=== PATIENT | female | born 1995 | race American Indian/Alaskan Native ===

== ENCOUNTER 2016-10-08 15:46 | Inpatient (IN) | payer OTHER, MEDICAID ==
[2016-10-08 16:35] LABS: Bacteria,Urine 1+ /HPF (Negative); Bilirubin,Urine NEG (Negative); Blood,Urine NEG (Negative); Ketones,Urine TR mg/dL (Negative); Leukocyte Esterase,Urine MOD (Negative); Mucus,Urine FEW /HPF; Nitrite,Urine NEG (Negative); Protein,Urine <15 mg/dL mg/dL (Negative); Urobilinogen,Urine < 2.0 mg/dL (<2.0)
--- NOTE | 2016-10-08 16:38 | Emergency Department Report ---
HPI - General Chief Complaint: Abdominal Pain Time Seen by Provider: 10/08/16 16:10 - HPI HPI: This is a 21-year-old Afro-[place] female presents to the emergency department via EMS from home with complaint of lower pelvic and vaginal pain that has been going on for the past hour prior to presentation. Patient did not take anything for her symptoms prior to presentation. She denies any nausea, vomiting, vaginal bleeding, vaginal discharge, dysuria. Patient says that the pain feels like contractions and similar to her labor and delivery one year ago. Patient is currently but if she was to be she would be . She says that she has been having regular menstrual cycles and the last one was one month ago. She has not taken any home tests. She denies any past medical history. She does not currently have an MANAGER [employer]. ED Past Medical Hx - Past Medical History Previous Medical History?: No - Surgical History Past Surgical History?: No - Social History Smoking Status: Never Smoker Substance Use Type: None - Medications Home Medications: Home Medications Medication Instructions Recorded Confirmed Last Taken Type No Known Home Medications [No 10/08/16 10/08/16 Unknown History Reported Home Medications] ED Review of Systems ROS: Stated complaint: ABD PX Other details as noted in HPI Comment: All other systems reviewed and negative Constitutional: denies: chills, fever Eyes: denies: eye pain, eye discharge, vision change ENT: denies: ear pain, throat pain Respiratory: denies: cough, shortness of breath, wheezing Cardiovascular: denies: chest pain, palpitations Gastrointestinal: abdominal pain (pelvic pain). denies: nausea, diarrhea Genitourinary: denies: dysuria, discharge Musculoskeletal: denies: back pain, joint swelling, arthralgia Skin: denies: rash, lesions Neurological: denies: headache, weakness, paresthesias Physical Exam - Physical Exam Vital Signs: Vital Signs 10/08/16 16:01 Temperature 98 F Pulse Rate 82 Respiratory 20 Rate Blood Pressure 131/85 Blood Pressure 131/85 [Left] O2 Sat by Pulse 100 Oximetry Physical Exam: GENERAL: The patient is well-developed well-nourished. HEENT: Normocephalic. Atraumatic. Extraocular motions are intact. Patient has moist mucous membranes. NECK: Supple. Trachea is midline. CHEST/LUNGS: Clear to auscultation. There is no respiratory distress noted. HEART/CARDIOVASCULAR: Regular. There is no tachycardia. There is no gallop rub or murmur. ABDOMEN: Abdomen is soft. Unable to reproduce abdominal and pelvic pain to palpation. Patient has normal bowel sounds. There is no abdominal distention. : There appears to be some type of saclike structure starting to come out of the cervix which is slightly dilated. SKIN: Skin is warm and dry. NEURO: The patient is awake, alert, and oriented. The patient is cooperative. The patient has no focal neurologic deficits. The patient has normal speech. MUSCULOSKELETAL: There is no tenderness or deformity. There is no limitation range of motion. There is no evidence of acute injury. ED Course Vital Signs 10/08/16 16:01 Temperature 98 F Pulse Rate 82 Respiratory 20 Rate Blood Pressure 131/85 Blood Pressure 131/85 [Left] O2 Sat by Pulse 100 Oximetry - Consultations Consultation #1: I did a bedside ultrasound and can see a head very low in the uterus is not in the cervical canal. I had the poultry field service technician come bedside and they agree and say that it looks like there is no amniotic fluid and no visible heart tones/rate. I spoke with the MANA[employer] on-call, Dr. Laura Sarabia, who says that they will need a ultrasound no matter what she does much information as possible about gestational age, lie, etc. However, they are accepting the patient over to labor and delivery triage. I will try to get the ultrasound first and then transport the patient. 10/08/16 16:43 ED Medical Decision Making - Radiology Data Radiology results: report reviewed Preliminary ultrasound obstetrical report shows 18 week gestation, no med , no heart tones are dopplered noted. No fluid seen in the uterus. Transverse lie of a xavier fetus. Cervix appears open with possible bulging bag. - Medical Decision Making 21-year-old female presents to the emergency department with a one-hour history of lower abdominal/pelvic spasmodic contractual pain. The patient had no idea that she was as she felt that she was having normal monthly menstrual cycles. However there appears to be some type of sac like structure or seen. I took a bedside ultrasound and there was a very visible head and cervical spine seen in the lower uterus and/or cervical canal. I spoke with the MANAGER [employer] on-call who said that they needed a full ultrasound to know what to do but did accept the patient for transfer/admission to the labor and delivery side. The ultrasound was done in the emergency department and the patient was immediately transported over to L&D triage. The pulmonary port shows a xavier gestation at about 18 weeks that does not appear viable as there is no movement, heart tones, and amniotic fluid in the cervix appears open. Patient is currently at labor and delivery. - Differential Diagnosis , miscarriage, threatened , fibroids Critical Care Time: No Critical care attestation.: If time is entered above; I have spent that time in minutes in the direct care of this critically ill patient, excluding procedure time. ED Disposition Clinical Impression: demise Qualifiers: Weeks of gestation: 18 weeks Qualified Code(s): Z3A.18 - 18 weeks gestation of Disposition: OP ADMITTED IP TO THIS HOSP Is pt being admited?: Yes Condition: Stable Time of Disposition: 17:34
--- NOTE | 2016-10-08 17:22 | Admit Criteria Form ---
Admission Criteria Documentation: OBSTETRIC AND GYNECOLOGIC DISEASE GRG Clinical Indications for Admission to Inpatient Care (Place 'X' for any and all applicable criteria): Hospital admission is needed for appropriate care of the patient because of 1 or more of the following (1)(2)(3): [ ]I. Hemodynamic instability, as indicated by 1 or more of the following (1)( 2)(3)(4)(5): [ ]a) Vital signs or other findings not as expected for chronic patient condition or baseline [ ]b) Instability indicated by 1 or more of the following: [ ]i) Hypotension [ ]ii) Symptomatic tachycardia unresponsive to treatment (eg, analgesia, fluids, sedation as indicated) [ ]iii) Inadequate perfusion indicated by 1 or more of the following: [ ]A. Lactic acidosis (greater than 2 mmol/ L) [ ]B. New abnormal capillary refill ( greater than 3 seconds) [ ]C. Reduced urine output [ ]D. New altered mental status [ ]iv) Orthostatic vital sign changes unresponsive to treatment (eg, fluids) [ ]v) Multiple IV fluid boluses required to maintain adequate blood pressure or perfusion [ ]vi) IV inotropic or vasopressor medication required to maintain adequate blood pressure or perfusion [ ]II. Obstetric infection requiring hospitalization indicated by 1 or more of the following(13)(14): [ ]a) Chorioamnionitis [ ]b) Endometritis (except mild endometritis) [ ]c) Pelvic abscess [ ]d) Peritonitis [ ]e) Septic pelvic thrombophlebitis [ ]III. Amniotic fluid or pulmonary embolism(4)(5)(6) [ ]IV. Suspected peritonitis or ectopic requiring monitoring beyond scope of 24 hours or observation care(7)(8) [ ]V. compromise requiring hospitalization indicated by ALL of the following(9)(10): [ ]a) compromise indicated by 1 or more of the following(11): [ ]i) Abnormal heart rate monitoring [ ]ii) Abnormal contraction stress test [ ]iii) Abnormal biophysical profile [ ]iv) Abnormal Doppler flow in vessels (ie, Doppler velocimetry) (12) [ ]b) Persistence of compromise indicators during evaluation and observation monitoring [ ]. Ovarian hyperstimulation syndrome requiring hospitalization[A] indicated by ALL of the following(15): [ ]a) Recent ovarian stimulation with gonadotropins, or evidence on ultrasound of spontaneous emergence of large number of ovarian follicles [ ]b) Evidence of severe ovarian hyperstimulation syndrome indicated by 1 or more of the following: [ ]i) Abdominal pain unresponsive to oral therapy [ ]ii) Acute respiratory distress syndrome [ ]iii) Electrolyte imbalance ( eg, hyponatremia, hyperkalemia) [ ]iv) Elevated liver enzymes [ ]v) Evidence of thromboembolism [ ]vi) Hemoconcentration (hematocrit greater than 45 % (0.45)) [ ]vii) Inability to maintain oral intake adequate to prevent hemoconcentration [ ]viii) Marked hypotension from baseline (eg, SBP 20 mmHg below patients usual pressure) [ ]ix) Oliguria or anuria [ ]x) Ovarian torsion [ ]xi) Pleural or pericardial effusion on x-ray or echocardiogram [ ]xii) Rapid increase in serum creatinine to greater than 1.2 mg/dL (106 micromoles/L) or creatinine clearance less than 50 mL/min/1.73m2 (0.84 mL/ sec/1.73m2) [ ]xiii) Ruptured ovarian cyst with hemorrhage [ ]xiv) Severe abdominal pain or peritoneal signs [ ]xv) Tense ascites that cannot be managed with paracentesis in outpatient setting [ ]VII.Pelvic infection requiring hospitalization indicated by 1 or more of the following (16): [ ]a) Outpatient treatment has failed or is not appropriate (eg, inpatient monitoring required) [ ]b) Pelvic abscess [ ]c) Surgical emergency cannot be excluded (eg, rigid abdomen) [ ]d) Vomiting precluding outpatient and observation care management VIII. loss complications requiring inpatient medical treatment indicated by 1 or more of the following (4)(7)(9): [ ]a) Fever [ ]b) Peritonitis [ ]c) Sepsis [X]d) Severe abdominal pain [ ]IX. or patient requiring monitoring for severe heart failure, pulmonary disease, or other comorbid condition (eg, peripartum cardiomyopathy) (4)(17) [ ]X. patient with rupture of membranes requiring hospitalization indicated by ANY ONE of the following: [ ]a) Chorioamnionitis, cloudy amniotic fluid, or other evidence of infection [ ]b) compromise or other need for monitoring (11) [ ]c) Gestation longer than 23 weeks and ANY ONE of the following: [ ]i) Abnormal (noncephalic) presentation [ ]ii) Inadequate home environment (eg, home too far from hospital, unable to rapidly return to hospital) [ ]d) Temperature greater than 100.4 degrees F (38 degrees C)( oral) [ ]e) Threatened labor requiring monitoring beyond scope (eg, over 24 hours) of observation Care [ ] XI. complications, including severe lacerations, infections, or retained placenta (19) [ ] XII.Uterine bleeding with high-risk features indicated by ANY ONE of the following (4): [ ]a) Active major hemorrhage (eg, hemorrhage) [ ]b) Coagulopathy with active bleeding [ ]c) Gestational trophoblastic disease (eg, molar ) (20 ) [ ]d) (longer than 23 weeks) and ANY ONE of the following: [ ]i) Pain [ ]ii) Placental abruption, known or suspected [ ]iii) Placenta accrete, known or suspected(21) [ ]iv) Placenta previa, known or suspected [ ]v) Vasa previa [ ]e) Severe anemia []XIII. Obstetric or Gynecologic Disease, condition or symptom for which ANY ONE of the following: [ ]a) Emergency and observation care have failed or are not considered appropriate ( Also use General Criteria: Observation Care Criteria as appropriate) [ ]b) Presence of a General Admission Criteria or Pediatric General Admission Criteria The original [facility] content created by [facility] has been revised. The portions of the content which have been revised are identified through the use of italic text or in bold, and [facility] has neither reviewed nor approved the modified material.All other unmodified content is copyright [facility]. Please see references footnoted in the original [facility] edition 2016 Admission Criteria Met: Yes
[2016-10-08] MEDS ORDERED: LACTATED RINGERS 1,000 ML ONE (17:26)
[2016-10-08] MEDS ORDERED: SUBLIMAZE ONE (17:27)
--- NOTE | 2016-10-08 17:32 | History and Physical Report ---
History of Present Illness Date of examination: 10/08/16 Date of admission: 10/08/16 16:45 Chief complaint: abdominal pain and vaginal bleeding History of present illness: This is a 21 yo LMP here for abdominal pain. She states that she came to ER c/o abdominal pain feeling like she needed to push. She has been having regular cycles since her last baby 1 year ago. She has no other complaints. she was unaware of any . No usage of control Past History Past Medical History: no pertinent history Past Surgical History: no surgical history Family/Genetic History: none Social history: single. denies: smoking, alcohol abuse, prescription drug abuse - Obstetrical History Expected Date of Delivery: 03/10/17 Actual Gestation: 18 Week(s) 1 Day(s) : 2 Para: 1 Hx # Term Pregnancies: 1 Number of Pregnancies: 0 Spontaneous Abortions: 0 Induced : 0 Number of Living Children: 1 Medications and Allergies Allergies Allergy/AdvReac Type Severity Reaction Status Date / Time No Known Allergies Allergy Unverified 10/08/16 16:11 Home Medications Medication Instructions Recorded Confirmed Last Taken Type No Known Home Medications [No 10/08/16 10/08/16 Unknown History Reported Home Medications] Review of Systems All systems: negative Constitutional: no fever, no chills, no sweats Eyes: deferred Ears, nose, mouth and throat: deferred Genitourinary: deferred, vaginal bleeding - Vital Signs Vital signs: Vital Signs Temp Pulse Resp BP Pulse Ox 98.0 F 82 20 131/85 100 10/08/16 16:01 10/08/16 16:01 10/08/16 16:01 10/08/16 16:01 10/08/16 16:01 Temp Pulse Resp BP Pulse Ox 98 F 98 H 18 131/85 98 10/08/16 16:11 10/08/16 17:25 10/08/16 16:11 10/08/16 16:11 10/08/16 17:25 - Physical Exam Breasts: Positive: normal Cardiovascular: Regular rate, Normal S1, Normal S2 Lungs: Positive: Clear to auscultation, Normal air movement Abdomen: Positive: normal appearance, soft, normal bowel sounds. Negative: distention, tenderness Genitourinary (Female): Positive: normal external genitalia, normal perenium Vulva: both: normal Vagina: Positive: normal moisture Uterus: Positive: normal size, normal contour Anus/Rectum: Positive: normal perianal skin, heme negative Extremities: Positive: normal Deep Tendon Reflex Grade: Normal +2 - Obstetrical Cervical Dilatation: 10 Cervical Effacement Percentage: 100 Uterine Contraction Pattern: Irregular Uterine Tone Measurement Phase: Contraction Uterine Contraction Intensity: Moderate Results All other labs normal. Assessment and Plan A/P 1. IUFD at 18 weeks , oligo 2. labs sent , urine tox screen 3. Pitocin intiated 4. expect vaginal delivery
--- NOTE | 2016-10-08 17:38 | Ultrasound Report ---
FINAL REPORT EXAM: US OB \T\gt; = 14 WEEKS FETUS HISTORY: , pelvic pain TECHNIQUE: Ultrasound obstetrical transabdominal PRIORS: None. FINDINGS: There is intrauterine gestation present. Biparietal diameter 18 weeks 2 days Head circumference 18 weeks 1 day Femur length 18 weeks 0 days. Composite gestational age eighteen weeks 1 day There is lack cardiac activity identified on M-mode tracing was well as pulsed and color Doppler evaluation There is no amniotic fluid identified There is appearance suggestive of tunneling at the internal cervical os IMPRESSION: Intrauterine gestation estimated age 18 weeks 1 day Lack of amniotic fluid within the gestational sac No cardiac activity identified on Doppler evaluation. Findings are most consistent with demise
[2016-10-08] MEDS ORDERED: ePHEDrine SULFATE IV PRN (17:41)
[2016-10-08] MEDS ORDERED: PHENERGAN PO PRN (17:41)
[2016-10-08] MEDS ORDERED: BRETHINE SUB-Q PRN (17:41)
[2016-10-08] MEDS ORDERED: SUBLIMAZE IV PRN (17:41)
[2016-10-08] MEDS ORDERED: BRETHINE IVP PRN (17:41)
[2016-10-08] MEDS ORDERED: MINERAL OIL PO PRN (17:41)
[2016-10-08] MEDS ORDERED: XYLOCAINE 2% INFILTRATI ONE (17:41)
[2016-10-08] MEDS ORDERED: NARCAN 0.4 MG/1 ML IV PRN (17:41)
[2016-10-08] MEDS ORDERED: ZOFRAN IV PRN (17:41)
[2016-10-08] MEDS ORDERED: PITOCin/NS 30 UNIT/500ML 30 UNITS/500 ML BAG IV SCH ×2 (18:00)
[2016-10-08] MEDS: LACTATED RINGERS 1,000 ML IV SCH (18:00)
[2016-10-08] MEDS ORDERED: PITOCin/NS 20 UNIT/1000ML DRIP 20 UNITS/1,000 ML BAG IV SCH (18:00)
[2016-10-08 18:15] LABS: Urine Drugs of Abuse Note Disclamer
[2016-10-08 18:40] LABS: Basophils % (Auto) 0.1 % (0.0-1.8); Eosinophils % (Auto) 0.1 % (0.0-4.3); Hematocrit 35.6 % (30.3-42.9); Hemoglobin 11.7 gm/dl (10.1-14.3); Mean Corpuscular HGB Conc 33 % (30-34); Mean Corpuscular Hemoglobin 29 pg (28-32); Mean Corpuscular Volume 89 fl (79-97); Platelet Count 292 K/mm3 (140-440); Red Blood Count 4.03 M/mm3 (3.65-5.03); Red Cell Distribution Width 13.5 % (13.2-15.2); White Blood Count 17.5 K/mm3 (4.5-11.0)
[2016-10-08 18:44] LABS: Alanine Aminotransferase 15 units/L (7-56); Albumin 3.5 g/dL (3.9-5); Albumin/Globulin Ratio 0.9 %; Alkaline Phosphatase 56 units/L (35-129); Anion Gap 20 mmol/L; Blood Urea Nitrogen 6 mg/dL (7-17); Calcium 8.8 mg/dL (8.4-10.2); Carbon Dioxide 18 mmol/L (22-30); Chloride 100.5 mmol/L (98-107); Glucose 96 mg/dL (65-100); Lipase 33 units/L (13-60); Potassium 3.6 mmol/L (3.6-5.0); Sodium 135 mmol/L (137-145); Total Protein 7.3 g/dL (6.3-8.2)
[2016-10-08] MEDS ORDERED: STADOL ONE (19:31)
[2016-10-08] MEDS ORDERED: STADOL IV PRN (19:59)
--- NOTE | 2016-10-08 20:37 | Event Note ---
Date: 10/08/16 Patient noted to have a bulging bag in vagina and it was arom with meconium light stained. cervix sve /-3 US shows no cardiac activity and no mevememnt with no fluid vertex recommended cytotec 200 ug IA every 6 hrs will continue with IOL for IUFD close monitor of vs and patient will be able to receive epidural for pain control
[2016-10-08] MEDS: CYTOTEC PR SCH (23:24)
[2016-10-09] MEDS ORDERED: AMBIEN PO PRN (02:51)
[2016-10-09] MEDS ORDERED: AMBIEN ONE (02:53)
[2016-10-09] MEDS: LACTATED RINGERS 1,000 ML IV SCH ×2 (02:56→10:42)
[2016-10-09] MEDS: CYTOTEC PR SCH (09:38)
[2016-10-09] MEDS ORDERED: PITOCin/NS 30 UNIT/500ML 30 UNITS/500 ML BAG IV SCH (13:00)
[2016-10-09] MEDS ORDERED: PITOCin/NS 30 UNIT/500ML 30,000 MILLIUNITS/500 ML BAG IV ONE (15:18)
--- NOTE | 2016-10-09 16:20 | Progress Note ---
Assessment and Plan - Patient Problems (1) demise Current Visit: Yes Status: Acute Plan to address problem: continue with induction of labor Subjective - Subjective Date of service: 10/09/16 Principal diagnosis: IUFD Interval history: The patient has been receiving rectal Cytotec for labor induction. She has not had any further cervical change. The patient will be transitioned to Pitocin high dose. Patient reports: no new complaints Objective - Vital Signs Vital Signs: Vital Signs - 12hr 10/09/16 10/09/16 10/09/16 05:46 08:54 08:55 Temperature 98.6 F Pulse Rate 90 104 H 83 Pulse Rate [ 80 Left From Monitor] Pulse Rate [ Right From Monitor] Respiratory 14 Rate Blood Pressure 113/55 183/138 109/59 Blood Pressure [Left Arm] O2 Sat by Pulse 98 98 Oximetry 10/09/16 10/09/16 10/09/16 08:59 11:00 11:26 Temperature 99.3 F Pulse Rate 88 86 Pulse Rate [ Left From Monitor] Pulse Rate [ 80 Right From Monitor] Respiratory 14 Rate Blood Pressure 117/78 Blood Pressure 117/78 [Left Arm] O2 Sat by Pulse 96 99 Oximetry 10/09/16 10/09/16 10/09/16 11:27 15:31 15:32 Temperature 98.8 F Pulse Rate 71 79 Pulse Rate [ 83 Left From Monitor] Pulse Rate [ Right From Monitor] Respiratory 12 Rate Blood Pressure 113/56 Blood Pressure 113/56 [Left Arm] O2 Sat by Pulse 99 100 Oximetry 10/09/16 10/09/16 15:37 15:42 Temperature Pulse Rate 88 89 Pulse Rate [ Left From Monitor] Pulse Rate [ Right From Monitor] Respiratory Rate Blood Pressure Blood Pressure [Left Arm] O2 Sat by Pulse 100 100 Oximetry - Labs Labs: Abnormal Labs 10/08/16 10/08/16 10/08/16 16:05 18:00 18:00 WBC 17.5 H Lymph % (Auto) 5.9 L Lymph # 1.0 L [place] # 1.1 H Seg Neutrophils % 87.6 H Seg Neutrophils # 15.3 H Sodium 135 L Carbon Dioxide 18 L BUN 6 L Creatinine 0.4 L Albumin 3.5 L Urine WBC (Auto) 15.0 H Urine HCG, Qual Positive A Laboratory Results - last 24 hr 10/08/16 10/08/16 10/08/16 16:05 18:00 18:00 WBC 17.5 H RBC 4.03 Hgb 11.7 Hct 35.6 MCV 89 MCH 29 MCHC 33 RDW 13.5 Plt Count 292 Lymph % (Auto) 5.9 L [place] % (Auto) 6.3 Eos % (Auto) 0.1 Baso % (Auto) 0.1 Lymph # 1.0 L [place] # 1.1 H Eos # 0.0 Baso # 0.0 Seg Neutrophils % 87.6 H Seg Neutrophils # 15.3 H Sodium 135 L Potassium 3.6 Chloride 100.5 Carbon Dioxide 18 L Anion Gap 20 BUN 6 L Creatinine 0.4 L Estimated GFR > 60 BUN/Creatinine Ratio 15.00 Glucose 96 Calcium 8.8 Total Bilirubin 0.20 AST 18 ALT 15 Alkaline Phosphatase 56 Total Protein 7.3 Albumin 3.5 L Albumin/Globulin Ratio 0.9 Lipase 33 HCG, Qual Urine Color Yellow Urine Turbidity Clear Urine pH 7.0 Ur Specific [place] 1.021 Urine Protein <15 mg/dl Urine Glucose (UA) Neg Urine Ketones Tr Urine Blood Neg Urine Nitrite Neg Urine Bilirubin Neg Urine Urobilinogen < 2.0 Ur Leukocyte Esterase Mod Urine WBC (Auto) 15.0 H Urine RBC (Auto) 2.0 U Epithel Cells (Auto) 11.0 Urine Bacteria (Auto) 1+ Hyaline Casts 1 Urine Mucus Few Urine HCG, Qual Positive A Urine Opiates Screen Urine Methadone Screen Ur Barbiturates Screen Ur Phencyclidine Scrn Ur Amphetamines Screen U Benzodiazepines Scrn Urine Cocaine Screen U Marijuana (THC) Screen Drugs of Abuse Note Blood Type Antibody Screen BR[place]GET[place] Antibody Screen 10/08/16 10/08/16 10/08/16 18:00 18:00 18:00 WBC RBC Hgb Hct MCV MCH MCHC RDW Plt Count Lymph % (Auto) [place] % (Auto) Eos % (Auto) Baso % (Auto) Lymph # [place] # Eos # Baso # Seg Neutrophils % Seg Neutrophils # Sodium Potassium Chloride Carbon Dioxide Anion Gap BUN Creatinine Estimated GFR BUN/Creatinine Ratio Glucose Calcium Total Bilirubin AST ALT Alkaline Phosphatase Total Protein Albumin Albumin/Globulin Ratio Lipase HCG, Qual Positive Urine Color Urine Turbidity Urine pH Ur Specific [place] Urine Protein Urine Glucose (UA) Urine Ketones Urine Blood Urine Nitrite Urine Bilirubin Urine Urobilinogen Ur Leukocyte Esterase Urine WBC (Auto) Urine RBC (Auto) U Epithel Cells (Auto) Urine Bacteria (Auto) Hyaline Casts Urine Mucus Urine HCG, Qual Urine Opiates Screen Presumptive negative Urine Methadone Screen Presumptive negative Ur Barbiturates Screen Presumptive negative Ur Phencyclidine Scrn Presumptive negative Ur Amphetamines Screen Presumptive negative U Benzodiazepines Scrn Presumptive negative Urine Cocaine Screen Presumptive negative U Marijuana (THC) Screen Presumptive positive Drugs of Abuse Note Disclamer Blood Type B NEGATIVE Antibody Screen TNR [place] Antibody Screen Negative 10/09/16 00:09 WBC RBC Hgb Hct MCV MCH MCHC RDW Plt Count Lymph % (Auto) [place] % (Auto) Eos % (Auto) Baso % (Auto) Lymph # [place] # Eos # Baso # Seg Neutrophils % Seg Neutrophils # Sodium Potassium Chloride Carbon Dioxide Anion Gap BUN Creatinine Estimated GFR BUN/Creatinine Ratio Glucose Calcium Total Bilirubin AST ALT Alkaline Phosphatase Total Protein Albumin Albumin/Globulin Ratio Lipase HCG, Qual Urine Color Urine Turbidity Urine pH Ur Specific [place] Urine Protein Urine Glucose (UA) Urine Ketones Urine Blood Urine Nitrite Urine Bilirubin Urine Urobilinogen Ur Leukocyte Esterase Urine WBC (Auto) Urine RBC (Auto) U Epithel Cells (Auto) Urine Bacteria (Auto) Hyaline Casts Urine Mucus Urine HCG, Qual Urine Opiates Screen Urine Methadone Screen Ur Barbiturates Screen Ur Phencyclidine Scrn Ur Amphetamines Screen U Benzodiazepines Scrn Urine Cocaine Screen U Marijuana (THC) Screen Drugs of Abuse Note Blood Type B NEGATIVE Antibody Screen TNR [place] Antibody Screen Negative
[2016-10-09] MEDS ORDERED: SUBLIMAZE IV PRN (19:00)
[2016-10-09] MEDS ORDERED: STADOL IV PRN (19:00)
[2016-10-09] MEDS ORDERED: STADOL ONE (19:29)
[2016-10-09] MEDS ORDERED: SUBLIMAZE ONE (21:41)
[2016-10-09] MEDS ORDERED: BENADRYL ONE (22:12)
[2016-10-09] MEDS ORDERED: BENADRYL IV ONE (22:14)
[2016-10-09] MEDS: MOTRIN PO PRN (22:17)
[2016-10-10] MEDS: MOTRIN PO PRN (04:09)
[2016-10-10] MEDS ORDERED: ZOFRAN IV PRN (04:24)
[2016-10-10] MEDS ORDERED: DULCOLAX PR PRN (04:24)
[2016-10-10] MEDS ORDERED: MILK OF MAGNESIA PO PRN (04:24)
[2016-10-10] MEDS ORDERED: TYLENOL PO PRN (04:24)
[2016-10-10] MEDS ORDERED: TUCKS PAD TP PRN (04:24)
[2016-10-10] MEDS ORDERED: PHENERGAN PO PRN (04:24)
[2016-10-10] MEDS ORDERED: BENADRYL PO PRN (04:24)
[2016-10-10] MEDS ORDERED: SODIUM CHLORIDE FLUSH SYRINGE 10 ML IV NR (05:00)
--- NOTE | 2016-10-10 08:30 | Procedure Note ---
OB Delivery Note - Delivery Date of Delivery: 10/10/16 Surgeon: JOHNNIE SANTOS Estimated blood loss: <100cc - Vaginal Delivery presentation: vertex Intrapartum events: other(please specify) (IUFD) Delivery induction: misoprostol Delivery augmentation: rupture of membranes, pitocin Delivery monitor: external uterine Route of delivery: Delivery placenta: spontaneous Anesthesia: none Delivery comments: Patient experienced pelvic pressure after receiving IV pitocin. Patient delivered a stillborn male with a weight 189gm. Placenta delivered spontaneously intact. No lacerations noted. - Infant A at 1 minute: 0 at 5 minutes: 0 Gender: Male (weight 189gm)
--- NOTE | 2016-10-10 08:32 | Discharge Summary ---
Providers - Providers Date of Admission: 10/08/16 14:44 Date of discharge: 10/10/16 Attending physician: LINDA ALLISON MD Primary care physician: [employer]CH[employer] REPA[employer]ER Hospitalization Reason for admission: IUFD Delivery: Laceration: none Discharge diagnosis: intrapartum demise Hospital course: The patient was admitted from the emergency department at 18 weeks with findings of an intrauterine demise. The patient had not received any care during the . She denies any precipitating event for her demise. The patient was admitted to labor and delivery for induction of labor. She had a spontaneous vaginal delivery of a stillborn male . Her course was uncomplicated. Condition at discharge: Good Disposition: DISCHARGED TO HOME OR SELFCARE - Discharge Diagnoses (1) demise Status: Acute Plan - Provider Discharge Summary Activity: no sex for 6 weeks, no heavy lifting 4 weeks, no strenuous exercise Diet: routine Instructions: routine Additional instructions: [] Smoking cessation referral if applicable(refer to patient education folder for contact #) [] Refer to [facility]'s [facility] Booklet Call your doctor immediately for: * Fever > 100.5 * Heavy vaginal bleeding ( >1 pad per hour) * Severe persistent headache * Shortness of breath * Reddened, hot, painful area to leg or breast * Drainage or odor from incision. * Keep incision clean and dry at all times and follow doctor's instructions regarding bathing/showering Follow-up 4 weeks - Follow up plan
[2016-10-10 09:11] VITALS: BP 114/66
[2016-10-10 10:28] LABS: Hematocrit 29.9 % (30.3-42.9); Hemoglobin 9.9 gm/dl (10.1-14.3)
== END 2016-10-10 13:30 | disposition home or self-care (01) | DRG 775 ==
LOC: ED 15:46 → UNDOADMIN 16:45 → LD 16:45 → ED 17:18 → UNDODISIN 10-09 13:02 → LD 10-09 14:44 → UNDOADMIN 10-09 14:44 → OB 10-10 01:04
PROVIDERS: ADMIT Obstetrics & Gynecology; ATTEND Obstetrics & Gynecology
PROC: 10E0XZZ Delivery of Products of Conception, External Approach (ICD-10-PCS; principal; 2016-10-10)
PROC: 10907ZC Drainage of Amniotic Fluid, Therapeutic from Products of Conception, Via Natural or Artificial Opening (ICD-10-PCS; 2016-10-10)
PROC: 30233S1 Transfusion of Nonautologous Globulin into Peripheral Vein, Percutaneous Approach (ICD-10-PCS; 2016-10-10)
DX: O36.4XX0 Maternal care for intrauterine death, not applicable or unspecified (principal); O60.12X0 Preterm labor second trimester with preterm delivery second trimester, not applicable or unspecified; O41.02X0 Oligohydramnios, second trimester, not applicable or unspecified; O77.0 Labor and delivery complicated by meconium in amniotic fluid; Z3A.18 18 weeks gestation of pregnancy; Z37.1 Single stillbirth
CPT/HCPCS: 36415; 76805; 80053; 80307; 81001; 81025; 83690; 84703; 85014; 85018; 85025; 85460; 85461; 86850; 86900; 86901; 88305; 99285; J0595; J1200; J2590; J2790; J3010; J7120